=== PATIENT | male | born 1960 | race Caucasian/White ===

== ENCOUNTER → 2016-08-07 | Outpatient (CLI) | payer OTHER ==
[~2016-08-07] MED LIST: CHOL100010 PO
== END | disposition home or self-care (01) ==
LOC: C.LAB 18:54
DX: Z02.83 Encounter for blood-alcohol and blood-drug test (principal)

== ENCOUNTER 2016-08-15 17:14 | Emergency (ER) | payer BC, OTHER ==
[~2016-08-15] VITALS: Ht 172.7 cm; Wt 85.9 kg
[2016-08-15 17:16] VITALS: TEMP 36.8; Ht 172.7 cm; Wt 85.9 kg
[2016-08-15] MEDS ORDERED: METOPROLOL TARTRATE 1 MG/ML VIAL ONE (18:01)
--- NOTE | 2016-08-15 18:11 | DIAGNOSTIC IMAGING REPORT ---
RIGHT HAND 3 VIEWS CLINICAL HISTORY: Finger injury. FINDINGS: 3 views of the right hand are obtained. No prior studies are available for comparison at the time of dictation. The skeletal structures are well mineralized. There is posterior dislocation of the fifth finger at the proximal interphalangeal joint with overlying soft tissue edema. No definite fracture is seen. Mild arthritic change is present involving the interphalangeal joints, greatest in the fifth distal interphalangeal joint. Mild arthritic change is also present at the first carpometacarpal and metacarpophalangeal joints. There are small metallic foreign bodies identified, located superficial to the radial styloid and along the ulnar aspect of the first proximal phalanx. IMPRESSION: 1. There is posterior dislocation at the fifth proximal interphalangeal joint with overlying soft tissue edema. 2. No definite fracture is seen. 3. There are 2 small metallic foreign bodies identified as above. 4. Mild arthritic change as above. Electronically signed by: Mir Parisi M.D. 08/15/2016 5:56 PM Dictated Date/Time: 08/15/2016 5:52 PM
--- NOTE | 2016-08-15 18:55 | DIAGNOSTIC IMAGING REPORT ---
RIGHT HAND 3 VIEWS CLINICAL HISTORY: Finger injury. Postreduction examination. FINDINGS: 3 views of the right hand are compared to study performed earlier the same day 08/15/2016. The skeletal structures are well mineralized. There has been judaism of near-anatomic alignment at the fifth proximal interphalangeal joint as compared to the earlier study. Mild overlying soft tissue edema persists. No fracture is identified. Mild arthritic change is present involving the interphalangeal joints, greatest in the fifth distal interphalangeal joint. Mild arthritic change is also present at the first carpometacarpal and metacarpophalangeal joints. There is unchanged appearance of 2 small metallic foreign bodies which are located superficial to the radial styloid and along the ulnar aspect of the first proximal phalanx. IMPRESSION: 1. There has been successful reduction of the dislocated fifth proximal interphalangeal joint as compared to the earlier study. 2. No fracture is seen. 3. Small metallic foreign bodies are again noted. Electronically signed by: Mir Parisi M.D. 08/15/2016 6:54 PM Dictated Date/Time: 08/15/2016 6:52 PM
[2016-08-15 18:57] VITALS: BP 128/83; PULSE 62; O2SAT 97
--- NOTE | 2016-08-15 21:56 | EMERGENCY ROOM VISIT NOTE ---
ED Visit Note First contact with patient: 17:31 Chief Complaint: Right little finger pain. History of Present Illness: Mr. Brasher is a 56-year-old white male who ambulates into the ED accompanied by his complaining of right little finger pain. Patient reports approximately an hour before he arrived in the emergency department stating a log with his son. He reports his little finger was caught on a branch and his son continue to push the log in his direction. He felt a popping sensation in the pain over the PIP joint of the little finger. Since that time his pain has been constant. Currently he describes it as a throbbing and burning sensation. He rates his discomfort 6/10. The pain is nonradiating. Pain worsens with palpation and any attempts to move the PIP joint. He has not identified any alleviating factors related to the pain. He has not taken any medication for pain prior to arrival at the hospital. He denies any associated symptoms including forearm pain, wrist pain, hand pain, other finger pain, right little finger weakness/ numbness/tingling. Additionally he denies any previous significant injuries or surgeries to finger. Review of Systems: As noted above in history of present illness. 5 body systems were reviewed and found to be negative as noted above. Past Medical History: Pneumonia. Current Medications: Patient denies. Allergies to Medications: Patient denies. Social History: Patient is currently employed; he feels safe in his home environment; he denies tobacco and alcohol use. Physical Examination: Vital Signs: Date Time Temp Pulse Resp B/P Pulse Ox O2 Delivery O2 Flow Rate FiO2 08/15/16 18:57 62 14 128/83 97 08/15/16 17:16 36.8 66 16 137/93 96 Room Air GENERAL: 56-year-old male in mild distress due to pain, nontoxic-appearing, afebrile and hemodynamically stable. NEUROLOGICAL: Awake, alert and oriented to person, place and time. Answering questions appropriately and following commands. SKIN: Warm, dry and pink. No soft tissue trauma noted. RIGHT HAND: Obvious deformity of the fifth PIP joint. No other hand or finger pain/tenderness. No bony deformity or crepitus throughout the little finger. Skin was warm and pink and capillary refill is brisk. He was able to distinguish light sensations through all dermatomes. ED Course: Patient is assessed as noted above. Patient was offered pain medication and refused. Right Hand X-Rays: Were read by myself and the radiologist showing a posterior dislocation of the fifth PIP joint with soft tissue edema. No other fractures were identified. Radiologist did note 2 small metallic foreign bodies in the hand and mild arthritic changes. Ethyl chloride was used to partially anesthetize the right fifth PIP joint. The PIP joint was easily reduced without difficulty. Right Hand X-Rays: Were read by myself and the radiologist and shows resolution of the posterior dislocation of the fifth PIP joint and no additional fractures were noted. Patient's little finger was placed in a metal splint. 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 Patient was educated about tonight's findings and instructed on his treatment plan; he verbalizes understanding and agreement with this plan. Clinical Impression: Right fifth PIP joint dislocation. Disposition: Patient discharged home in stable condition accompanied by his ; prior to departure he was reassessed and subjectively reported he was feeling better and rated his discomfort 2/10. Plan: Comfort measures were discussed with the patient. Patient was encouraged to follow-up with orthopedics if no better in 5-6 days. Patient was encouraged return the ED for uncontrolled pain, uncontrolled swelling, any additional dislocations or any new/concerning symptoms.
== END 2016-08-15 18:59 | disposition home or self-care (01) ==
LOC: C.EDB 17:15 → C.EDD 18:59
DX: S63.256A Unspecified dislocation of right little finger, initial encounter (principal); X58.XXXA Exposure to other specified factors, initial encounter

== ENCOUNTER 2021-04-21 11:44 | Inpatient (IN) ==
[2021-04-21] MEDS ORDERED: DEXAMETHASONE SOD INJ 4 MG/ML VIAL IV STA (12:09)
[2021-04-21] MEDS ORDERED: DEXAMETHASONE SOD INJ 4 MG/ML VIAL ONE (12:10)
[2021-04-21] MEDS ORDERED: ALBUT/IPRATROP 3MG/0.5MG NEB 3 ML VIAL NEB STA (12:13)
--- NOTE | 2021-04-21 12:13 | Emergency Department Note ---
History of Present Illness General Chief Complaint: Illness Stated Complaint: WEAK,COUGHING,HASN'T BEEN EATING OR DRINKING Time Seen by Provider: 04/21/21 12:01 History of Present Illness Provider Complaint: shortness of breath and cough Onset (ago): week(s) (2) Severity: severe Consistency/Duration: + progressively worsening Maximum Pain Intensity: 0 Current Pain Intensity: 0 Relieved By: + oxygen Exacerbated By: + exertion and + coughing Known history of: asthma Associated symptoms: + fever, + cough, + wheezing and + sputum production; no orthopnea, no polyuria, no palpitations, no diaphoresis, no syncope, no abdominal pain, no rash, no chest congestion or no lightheadedness HPI Narrative: Patient not vaccinated against COVID-19. Related Data Home oxygen amount: none Home Medications Medication Instructions Recorded Confirmed Type albuterol sulfate 90 mcg/actuation 1 puff INHALATION Q6H PRN 06/27/18 02/04/21 H istory aerosol inhaler azelastine 137 mcg (0.1 %) nasal 2 spray INTNAS BID #30 ml 01/28/20 02/04/21 Rx spray aerosol fluticasone furoate 200 1 inh INHALATION QAM #180 ea 03/23/21 Rx mcg-vilanterol 25 mcg/dose inhalation powder (Breo Ellipta) Allergies Allergy/AdvReac Type Severity Reaction Status Date / Time No Known Allergies Allergy Verified 02/04/21 15:51 Past Med/Surg History Medical History Asthma Hyperlipidemia Kidney stones Surgical History History of endoscopic sinus surgery Family History Father Cardiac disorder Diabetes Hypertension Mother Breast cancer Unknown Breast cancer Diabetes Ruptured Rao aneurysm Social History Smoking Status: Unknown if ever smoked Second Hand Exposure: No; Hx Alcohol Use: No Hx Substance Use: No Preferred Language: Rw[place] Communication Ability: Effective Human Resources Executive Required: No Beliefs That Will Affect Care: None Current Living Situation: Spouse Feels Safe at Home: Yes Review of Systems A total of 10 systems reviewed and were otherwise negative Physical Exam Vital Signs: Vital Signs - 24 hr 04/21/21 11:47 04/21/21 12:00 04/21/21 12:17 Temperature 36.9 C Temperature Source Temporal Artery Sc an Pulse Rate 97 H Pulse Rate [Apical ] 80 Respiratory Rate 18 19 Respiratory Effort / Characteristics Non-Labored Non-Labored Sponta neous Respiratory Depth Normal Blood Pressure 129/66 Blood Pressure [Le ft Arm] 129/88 Blood Pressure Paz n 87 Blood Pressure Paz n [Left Arm] 101 Blood Pressure Pos ition [Left Arm] Pulse Oximetry 85 L 93 96 Oxygen Delivery Me thod Room Air Nasal Cannula Nasal Cannula Oxygen Flow Rate 4 3 Sepsis Recent Feve r Within 48 Hours No Sepsis New/Unexpla ined Change in Men belem Status No Sepsis Action Take n by Nursing No Action Required 04/21/21 12:25 04/21/21 12:30 04/21/21 12:41 Temperature Temperature Source Pulse Rate Pulse Rate [Apical ] 84 61 Respiratory Rate 18 20 Respiratory Effort / Characteristics Non-Labored Sponta neous Respiratory Depth Blood Pressure Blood Pressure [Le ft Arm] 119/91 Blood Pressure Paz n Blood Pressure Paz n [Left Arm] 100 Blood Pressure Pos ition [Left Arm] Pulse Oximetry 93 93 94 Oxygen Delivery Me thod Nasal Cannula Nasal Cannula Nasal Cannula Oxygen Flow Rate 4 3 4 Sepsis Recent Feve r Within 48 Hours Sepsis New/Unexpla ined Change in Men belem Status Sepsis Action Take n by Nursing 04/21/21 14:00 04/21/21 14:22 04/21/21 15:00 Temperature Temperature Source Pulse Rate Pulse Rate [Apical ] 81 94 H Respiratory Rate 14 18 18 Respiratory Effort / Characteristics Non-Labored Sponta neous Respiratory Depth Blood Pressure Blood Pressure [Le ft Arm] 122/83 120/89 Blood Pressure Paz n Blood Pressure Paz n [Left Arm] 96 99 Blood Pressure Pos ition [Left Arm] Semi-fowlers Pulse Oximetry 96 96 95 Oxygen Delivery Me thod Nasal Cannula Nasal Cannula Nasal Cannula Oxygen Flow Rate 3 3 4 Sepsis Recent Feve r Within 48 Hours Sepsis New/Unexpla ined Change in Men belem Status Sepsis Action Take n by Nursing Physical Exam: Physical Exam GENERAL: He is oriented to person, place, and time. He appears well-developed and well-nourished. He does not appear distressed. HENT: Exam performed. - Head: Normocephalic and atraumatic. - Right Ear: External ear normal. No mastoid tenderness. - Left Ear: External ear normal. No mastoid tenderness. - Mouth/Throat: The oropharynx is clear and moist. No trismus in the jaw. No dental abscesses or uvula swelling. No oropharyngeal exudate or tonsillar absces ses. EYES: Conjunctivae and EOM are normal. Pupils are equal, round, and reactive to light. Right eye exhibits no discharge. Left eye exhibits no discharge. No scleral icterus. NECK: Normal range of motion. Neck supple. No JVD present. No spinous process tenderness present. No carotid bruit present. No rigidity. No tracheal deviation and normal range of motion present. No Brudzinski's sign and no Kernig's sign noted. CV: Normal rate, regular rhythm, normal heart sounds and intact distal pulses. There is no peripheral edema. Palpable radial pulses bue. PULM/CHEST: Diminished breath sounds bilaterally. ABD: The abdomen is soft. Bowel sounds are normal. He has no distension. No mass is present. There is no tenderness. There is no rebound, no guarding, no Duong's sign and no tenderness at McBurney's point. Rovsig negative. MUSC/SKEL: Normal range of motion. There is no peripheral edema, tenderness or deformity. LYMPH: No cervical adenopathy. NEURO: He is alert and oriented to person, place, and time. He has normal strength. No cranial nerve deficit or sensory deficit. Coordination and gait normal. GCS eye subscore is 4. GCS verbal subscore is 5. GCS motor subscore is 6. Cerebellar tests wnl. SKIN: Skin is warm and dry. He is not diaphoretic. PSYCH: He has a normal mood and affect. Behavior is normal. Judgment and thought content normal. Course Course 1201: The patient was evaluated in room A11. A complete history and physical exam was performed Cardiac monitoring: An order was placed for continuous cardiac monitoring. The monitor shows a rate of 90 with sinus rhythm Patient found to be hypoxic on room air at 80%. Patient placed on supplemental oxygen via nasal cannula which proved his oxygen saturation. Decadron 6 mg ordered for the patient as patient most likely is COVID-19 given his unvacc inated status and his symptoms. DuoNeb also ordered for the patient. 1445: Vital signs stable on supplemental oxygen via nasal cannula. Labs are within normal limits. Imaging does showed no PE and does show multifocal pneumonia with Covid. There is also pneumomediastinum. It is thought that the pneumomediastinum is most likely due to the patient coughing excessively. Discussed the case with Sumanth LAZARO for Dr. Millan mount any hospitalist who agrees to admit the patient to their service. Administered Medications Discontinued Medications Albuterol (Albut/Ipratrop 3mg/0.5mg Neb 3 Ml Vial) 3 ml NEB NOW STA Stop: 04/21/21 12:14 Last Admin: 04/21/21 12:41 Dose: 3 ml Documented by: [id number] Dexamethasone (Dexamethasone Sod Inj 4 Mg/Ml Vial) Confirm Administered Dose 4 mg .ROUTE .STK-MED ONE Stop: 04/21/21 12:11 Last Admin: 04/21/21 12:13 Dose: Not Given Documented by: [id number] Dexamethasone (Dexamethasone Sod Inj 4 Mg/Ml Vial) 6 mg IV NOW STA Stop: 04/21/21 12:10 Last Admin: 04/21/21 12:13 Dose: 6 mg Documented by: [id number] Ioversol (Optiray 320 125ml) 121 ml IV ONCE ONE Stop: 04/21/21 13:51 Last Admin: 04/21/21 13:50 Dose: 121 ml Documented by: [id number] Medical Decision Making Laboratory Data Result diagrams: 04/21/21 12:15 04/21/21 12:15 Lab Results 04/21/21 04/21/21 04/21/21 Range/Units 12:15 12:15 12:15 WBC 6.53 (4.8-10.8) K/uL RBC 5.49 (4.7-6.1) M/uL Hgb 15.6 (14.0-18.0) g/dL Hct 45.5 (42-52) % MCV 82.9 (80-100) fL MCH 28.4 (25-34) pg MCHC 34.3 (32-36) g/dL RDW Std Deviation 40.7 (36.4-46.3) fL RDW Coeff of Jade 13.4 (11.5-14.5) % Plt Count 306 (130-400) K/uL MPV 10.0 (7.4-10.4) fL Immature Gran % (Auto) 0.5 % Neut % (Auto) 81.9 % Lymph % (Auto) 11.3 % Coffey % (Auto) 5.8 % Eos % (Auto) 0.3 % Baso % (Auto) 0.2 % Neut # (Auto) 5.35 (1.4-6.5) K/uL Lymph # (Auto) 0.74 L (1.2-3.4) K/uL Coffey # (Auto) 0.38 (0.11-0.59) K/uL Eos # (Auto) 0.02 (0-0.5) K/uL Baso # (Auto) 0.01 (0-0.2) K/uL Immature Gran # (Auto) 0.03 H (0.00-0.02) K/uL PT 10.7 (9.0-12.0) Seconds INR 1.1 (0.9-1.1) APTT 24.0 (21.0-31.0) Seconds PTT Ratio 0.9 VBG pH (7.36-7.41) VBG pCO2 (38-50) mmHg VBG pO2 mmHg VBG HCO3 mmol/L VBG O2 Saturation % VBG Base Excess mEq/L Barometric Pressure mm/Hg Sodium 139 (136-145) mmol/L Potassium 4.1 (3.5-5.1) mmol/L Chloride 105 (98-107) mmol/L Carbon Dioxide 26 (21-32) mmol/L Anion Gap 8.0 (3-11) BUN 21 H (7-18) mg/dl Creatinine 1.05 (0.6-1.4) mg/dl Est Cr Clr Drug Dosing 72.4 ml/min Est GFR ( Amer) 89.0 ml/min Est GFR (Non-Af Amer) 76.8 ml/min BUN/Creatinine Ratio 20.2 H (10-20) Glucose 144 H (70-99) mg/dl Lactate (0.4-2.0) mmol/L Calcium 8.8 (8.5-10.1) mg/dl Magnesium 2.7 H (1.8-2.4) mg/dl Total Bilirubin 1.4 H (0.2-1) mg/dl AST 219 H (15-37) U/L ALT 349 H (12-78) U/L Alkaline Phosphatase 269 H (45-117) U/L Troponin I < 0.015 (0-0.045) ng/ml NT-Pro-B Natriuret Pep 79 (0-900) pg/ml Total Protein 8.0 (6.4-8.2) gm/dl Albumin 2.6 L (3.4-5.0) gm/dl Globulin 5.4 H (2.5-4.0) gm/dl Albumin/Globulin Ratio 0.5 L (0.9-2) Procalcitonin (0-0.5) ng/ml COVID-19 Eval Order SARS-CoV-2 (PCR) (Negative) 04/21/21 04/21/21 04/21/21 Range/Units 12:15 12:15 12:33 WBC (4.8-10.8) K/uL RBC (4.7-6.1) M/uL Hgb (14.0-18.0) g/dL Hct (42-52) % MCV (80-100) fL MCH (25-34) pg MCHC (32-36) g/dL RDW Std Deviation (36.4-46.3) fL RDW Coeff of Jade (11.5-14.5) % Plt Count (130-400) K/uL MPV (7.4-10.4) fL Immature Gran % (Auto) % Neut % (Auto) % Lymph % (Auto) % Coffey % (Auto) % Eos % (Auto) % Baso % (Auto) % Neut # (Auto) (1.4-6.5) K/uL Lymph # (Auto) (1.2-3.4) K/uL Coffey # (Auto) (0.11-0.59) K/uL Eos # (Auto) (0-0.5) K/uL Baso # (Auto) (0-0.2) K/uL Immature Gran # (Auto) (0.00-0.02) K/uL PT (9.0-12.0) Seconds INR (0.9-1.1) APTT (21.0-31.0) Seconds PTT Ratio VBG pH (7.36-7.41) VBG pCO2 (38-50) mmHg VBG pO2 mmHg VBG HCO3 mmol/L VBG O2 Saturation % VBG Base Excess mEq/L Barometric Pressure mm/Hg Sodium (136-145) mmol/L Potassium (3.5-5.1) mmol/L Chloride (98-107) mmol/L Carbon Dioxide (21-32) mmol/L Anion Gap (3-11) BUN (7-18) mg/dl Creatinine (0.6-1.4) mg/dl Est Cr Clr Drug Dosing ml/min Est GFR ( Amer) ml/min Est GFR (Non-Af Amer) ml/min BUN/Creatinine Ratio (10-20) Glucose (70-99) mg/dl Lactate (0.4-2.0) mmol/L Calcium (8.5-10.1) mg/dl Magnesium (1.8-2.4) mg/dl Total Bilirubin (0.2-1) mg/dl AST (15-37) U/L ALT (12-78) U/L Alkaline Phosphatase (45-117) U/L Troponin I (0-0.045) ng/ml NT-Pro-B Natriuret Pep (0-900) pg/ml Total Protein (6.4-8.2) gm/dl Albumin (3.4-5.0) gm/dl Globulin (2.5-4.0) gm/dl Albumin/Globulin Ratio (0.9-2) Procalcitonin 0.40 (0-0.5) ng/ml COVID-19 Eval Order Covid19 at [facility] SARS-CoV-2 (PCR) POSITIVE A* (Negative) 04/21/21 04/21/21 Range/Units 12:44 12:44 WBC (4.8-10.8) K/uL RBC (4.7-6.1) M/uL Hgb (14.0-18.0) g/dL Hct (42-52) % MCV (80-100) fL MCH (25-34) pg MCHC (32-36) g/dL RDW Std Deviation (36.4-46.3) fL RDW Coeff of Jade (11.5-14.5) % Plt Count (130-400) K/uL MPV (7.4-10.4) fL Immature Gran % (Auto) % Neut % (Auto) % Lymph % (Auto) % Coffey % (Auto) % Eos % (Auto) % Baso % (Auto) % Neut # (Auto) (1.4-6.5) K/uL Lymph # (Auto) (1.2-3.4) K/uL Coffey # (Auto) (0.11-0.59) K/uL Eos # (Auto) (0-0.5) K/uL Baso # (Auto) (0-0.2) K/uL Immature Gran # (Auto) (0.00-0.02) K/uL PT (9.0-12.0) Seconds INR (0.9-1.1) APTT (21.0-31.0) Seconds PTT Ratio VBG pH 7.45 H (7.36-7.41) VBG pCO2 42 (38-50) mmHg VBG pO2 18 mmHg VBG HCO3 28 mmol/L VBG O2 Saturation < 60.0 % VBG Base Excess 3.9 mEq/L Barometric Pressure 735.3 mm/Hg Sodium (136-145) mmol/L Potassium (3.5-5.1) mmol/L Chloride (98-107) mmol/L Carbon Dioxide (21-32) mmol/L Anion Gap (3-11) BUN (7-18) mg/dl Creatinine (0.6-1.4) mg/dl Est Cr Clr Drug Dosing ml/min Est GFR ( Amer) ml/min Est GFR (Non-Af Amer) ml/min BUN/Creatinine Ratio (10-20) Glucose (70-99) mg/dl Lactate 1.9 (0.4-2.0) mmol/L Calcium (8.5-10.1) mg/dl Magnesium (1.8-2.4) mg/dl Total Bilirubin (0.2-1) mg/dl AST (15-37) U/L ALT (12-78) U/L Alkaline Phosphatase (45-117) U/L Troponin I (0-0.045) ng/ml NT-Pro-B Natriuret Pep (0-900) pg/ml Total Protein (6.4-8.2) gm/dl Albumin (3.4-5.0) gm/dl Globulin (2.5-4.0) gm/dl Albumin/Globulin Ratio (0.9-2) Procalcitonin (0-0.5) ng/ml COVID-19 Eval Order SARS-CoV-2 (PCR) (Negative) Imaging Data Radiologist's Impression: Chest X-Ray 04/21/21 12:10 SINGLE VIEW CHEST CLINICAL HISTORY: Sepsis. FINDINGS: An AP, portable, upright chest radiograph is compared to study dated 05/02/2018. The cardiomediastinal silhouette is unremarkable. Heart is top normal for projection. Multifocal airspace consolidation is seen throughout both lungs, greatest in a subpleural and lower lobe distribution. No large pleural effusion or pneumothorax is seen. The bony thorax is grossly intact. IMPRESSION: Multifocal airspace consolidation is typical for pneumonia. Clinical correlation will be required and radiographic follow-up to resolution is recommended. ACT 112: Negative or not required by law. Electronically signed by: Mir Parisi M.D. 04/21/2021 1:37 PM Chest CTA 04/21/21 12:11 CT angio chest PE protocol CLINICAL HISTORY: Cough, fever, shortness of breath TECHNIQUE: Multidetector row helical CT of the chest was performed. Coronal and sagittal reformations were obtained. Automated dose lowering techniques and/or adjustment according to patient size were utilized for this exam. Comparison: Comparison is made to chest one view 04/21/2021 FINDINGS: Lungs and pleura: Multifocal groundglass and consolidative opacities are seen predominantly in the peripheral lungs. Bronchial wall thickening is seen. Heart and pericardium: There is cardiomegaly without evidence of pericardial effusion. Vessels: No evidence of pulmonary embolism. Ascending aortic aneurysm is seen measuring measuring 48 mm in diameter. Pulmonary trunk measures 33 mm in diameter. Mediastinum and shan: Pneumomediastinum is seen. Chest wall and lower neck: Unremarkable. Abdomen: A hiatal hernia is seen. Bones: Unremarkable. IMPRESSION: 1. No evidence of pulmonary embolism. 2. Diffuse groundglass and consolidation is seen compatible with infectious/i nflammatory process. 3. Pulmonary trunk is dilated compatible with pulmonary hypertension. 4. Ascending aortic aneurysm measuring 48 mm in diameter. 5. Pneumomediastinum is seen. Clinical correlation is recommended. ACT 112: Negative or not required by law. Electronically signed by: Greg Estrada M.D. 04/21/2021 2:02 PM ECG Data Interpretation: Sinus rhythm with rate of 78. IA QRS and QTc intervals within normal limits. No ST elevation or ST depression. [facility] Narrative 1201: The patient was evaluated in room A11. A complete history and physical exam was performed Cardiac monitoring: An order was placed for continuous cardiac monitoring. The monitor shows a rate of 90 with sinus rhythm Patient found to be hypoxic on room air at 80%. Patient placed on supplemental oxygen via nasal cannula which proved his oxygen saturation. Decadron 6 mg orde red for the patient as patient most likely is COVID-19 given his unvaccinated status and his symptoms. DuoNeb also ordered for the patient. 1445: Vital signs stable on supplemental oxygen via nasal cannula. Labs are within normal limits. Imaging does showed no PE and does show multifocal pneumonia with Covid. There is also pneumomediastinum. It is thought that the pneumomediastinum is most likely due to the patient coughing excessively. Discussed the case with Sumanth LAZARO for Dr. Millan [facility] hospitalist who agrees to admit the patient to their service. Impression & Plan Hypoxia, Pneumonia due to 2019 novel coronavirus, Pneumomediastinum Critical Care Time Critical Care Time: Yes Total Critical Care Time: 38 I have personally spent greater than 38 minutes of critical care time in the direct management of this patient. This includes bedside care, interpretation of diagnostic studies, and testing, discussion with consultants, patient, and family members, and other required patient management activities. This 38 minutes is in excess of all separately billable procedures. Discharge Plan Visit Data Chief Complaint: Illness Stated Complaint: WEAK,COUGHING,HASN'T BEEN EATING OR DRINKING ED Provider: Eduardo Lozada Discharge Problem: Hypoxia, Pneumonia due to 2019 novel coronavirus, Pneumomediastinum Patient Disposition: Admitted As Inpatient Forms Stand Alone Forms: My [facility] Prescriptions Prescriptions: No Action azelastine 137 mcg (0.1 %) aerosol,spray 2 spray INTNAS BID Qty: 30 RF: 5 Breo Ellipta 200-25 mcg/dose blister with device 1 inh INHALATION QAM Qty: 180 RF: 3 albuterol sulfate 90 mcg/actuation Hfa Aerosol Inhaler 1 puff INHALATION Q6H PRN (Reason: SOB) RF: 0 Referrals Referrals: Elena Venegas CRNP [Primary Care Provider] -
[2021-04-21 12:28] LABS: Basophils # (auto) 0.01 K/uL (0-0.2); Basophils % (auto) 0.2 %; Eosinophils # (auto) 0.02 K/uL (0-0.5); Eosinophils % (auto) 0.3 %; Hematocrit (blood only) 45.5 % (42-52); Hemoglobin 15.6 g/dL (14.0-18.0); Immature Granulocytes # (auto) 0.03 K/uL (0.00-0.02); Immature Granulocytes % (auto) 0.5 %; Lymphocytes # (auto) 0.74 K/uL (1.2-3.4); Lymphocytes % (auto) 11.3 %; Mean Corpuscular Hemoglobin 28.4 pg (25-34); Mean Corpuscular Hgb Conc 34.3 g/dL (32-36); Mean Corpuscular Volume 82.9 fL (80-100); Monocytes # (auto) 0.38 K/uL (0.11-0.59); Monocytes % (auto) 5.8 %; Neutrophils # (auto) 5.35 K/uL (1.4-6.5); Neutrophils % (auto) 81.9 %; Platelet Count 306 K/uL (130-400); RDW Coefficient of Variation 13.4 % (11.5-14.5); RDW Standard Deviation 40.7 fL (36.4-46.3); Red Blood Count 5.49 M/uL (4.7-6.1); White Blood Count 6.53 K/uL (4.8-10.8)
--- NOTE | 2021-04-21 12:30 | Electrocardiogram Report ---
Test Reason : Blood Pressure : / mmHG Vent. Rate : 078 BPM Atrial Rate : 078 BPM P-R Int : 150 ms QRS Dur : 094 ms QT Int : 400 ms P-R-T Axes : 068 026 023 degrees QTc Int : 456 ms Normal sinus rhythm Normal ECG No previous ECGs available Confirmed by Walter Lopez ([id number]) on 04/21/2021 12:29:28 PM Referred By: REFERRED SELF Confirmed By:Walter Lopez
[2021-04-21 12:42] LABS: INR 1.1 (0.9-1.1); Partial Thromboplastin Ratio 0.9; Prothrombin Time 10.7 Seconds (9.0-12.0)
[2021-04-21 12:52] LABS: Albumin Level 2.6 gm/dl (3.4-5.0); BUN Creatinine Ratio 20.2 (10-20); Blood Urea Nitrogen 21 mg/dl (7-18); Calcium 8.8 mg/dl (8.5-10.1); Carbon Dioxide 26 mmol/L (21-32); Chloride 105 mmol/L (98-107); Creatinine Clr Calc Pharmacy 72.4 ml/min; Est GFR (Non-African American) 76.8 ml/min; Glucose 144 mg/dl (70-99); Magnesium 2.7 mg/dl (1.8-2.4); Potassium 4.1 mmol/L (3.5-5.1); Sodium 139 mmol/L (136-145)
[2021-04-21 12:57] LABS: Alanine Aminotransferase 349 U/L (12-78); Albumin Globulin Ratio 0.5 (0.9-2); Alkaline Phosphatase 269 U/L (45-117); Aspartate Aminotransferase 219 U/L (15-37); Bilirubin,Total 1.4 mg/dl (0.2-1); Globulin 5.4 gm/dl (2.5-4.0); NT Pro B Type Natriuretic Pept 79 pg/ml (0-900); Troponin I < 0.015 ng/ml (0-0.045)
[2021-04-21 13:02] LABS: Base Excess VBG 3.9 mEq/L; HCO3 VBG 28 mmol/L; PCO2 VBG 42 mmHg (38-50); PO2 VBG 18 mmHg; pH VBG 7.45 (7.36-7.41)
[2021-04-21 13:07] LABS: Oxygen Saturation VBG < 60.0 %
--- NOTE | 2021-04-21 13:38 | XRay Report ---
SINGLE VIEW CHEST CLINICAL HISTORY: Sepsis. FINDINGS: An AP, portable, upright chest radiograph is compared to study dated 05/02/2018. The cardio mediastinal silhouette is unremarkable. Heart is top normal for projection. Multifocal airspace conso lidation is seen throughout both lungs, greatest in a subpleural and lower lobe distribution. No larg e pleural effusion or pneumothorax is seen. The bony thorax is grossly intact. IMPRESSION: Multifocal airspace consolidation is typical for pneumonia. Clinical correlation will be required and radiographic follow-up to resolution is recommended. ACT 112: Negative or not required by law. Electronically signed by: Mir Parisi M.D. 04/21/2021 1:37 PM
[2021-04-21] MEDS ORDERED: OPTIRAY 320 125ml IV ONE (13:50)
--- NOTE | 2021-04-21 14:04 | CT Scan Report ---
CT angio chest PE protocol CLINICAL HISTORY: Cough, fever, shortness of breath TECHNIQUE: Multidetector row helical CT of the chest was performed. Coronal and sagittal reformations were obtained. Automated dose lowering techniques and/or adjustment according to patient size were u tilized for this exam. Comparison: Comparison is made to chest one view 04/21/2021 FINDINGS: Lungs and pleura: Multifocal groundglass and consolidative opacities are seen predominantly in the pe ripheral lungs. Bronchial wall thickening is seen. Heart and pericardium: There is cardiomegaly without evidence of pericardial effusion. Vessels: No evidence of pulmonary embolism. Ascending aortic aneurysm is seen measuring measuring 48 mm in diameter. Pulmonary trunk measures 33 mm in diameter. Mediastinum and shan: Pneumomediastinum is seen. Chest wall and lower neck: Unremarkable. Abdomen: A hiatal hernia is seen. Bones: Unremarkable. IMPRESSION: 1. No evidence of pulmonary embolism. 2. Diffuse groundglass and consolidation is seen compatible with infectious/inflammatory process. 3. Pulmonary trunk is dilated compatible with pulmonary hypertension. 4. Ascending aortic aneurysm measuring 48 mm in diameter. 5. Pneumomediastinum is seen. Clinical correlation is recommended. ACT 112: Negative or not required by law. Electronically signed by: Greg Estrada M.D. 04/21/2021 2:02 PM
[2021-04-21] MEDS ORDERED: LACTATED RINGER'S 1,000 ML IV ONE (15:18)
--- NOTE | 2021-04-21 15:23 | History & Physical Report ---
Date of Service April 21, 2021 Assessment & Plan (1) Pneumonia due to 2019 novel coronavirus: Plan: Not vaccinated - approximate day of illness ~14 days - hypoxic on arrival - Continue Decadron 6mg daily IV - Continue MICHELLE, Continue BREO - Not candidate for remdesivir secondary to time out from illness - LDH, CRP, ESR, Ferritin, BNP pending - PCT negative - LR 90ml an hour for one liter- mild increase in BUN/CLINICAL MASSAGE THERAPIST likely secondary to decrease oral intake (2) Pneumomediastinum: Plan: Likely secondary to coughing, no pneumothorax seen on CXR or CT scan of the chest - likely to resolve on own - continue basic oxygen support - cough suppressant scheduled for 24 hours and then PRN q6 hrs - re-image if worsening in status (3) Hypoxia: Plan: As above secondary to COVID 19 and underlying asthma - Continue Decadron, MICHELLE, BREO - NC/HFNC (4) Dilated aortic root: Plan: Stable- last imaged in 2019 4.6cm (5) Asthma: Plan: As above (6) Hyperlipidemia: Plan: Declined therapy in the past (7) Elevated LFTs: Plan: Acute phase reactant secondary to COVID likely cause - follow daily - no abdominal discomfort - no abnormality seen on CTA of the chest with liver and gallbladder History of Present Illness Primary Care Provider: IVETH Nation 60 YOM with past medical history of: asthma on Albuterol and Breo at home, dilated ascending aorta 4.6cm in 2019, HLD (declined medial therapy). Patient comes to the emergency room today for continued weakness, fatigue, decreased oral intake for the past week. He is unvaccinated and today is his only COVID test that he has received per the patient. Patient is COVID positive. He is accompanied by his who has also recently been sick and is on the end of feeling better. The patient endorses that he is approximately 2 weeks of sinus congestion, fevers, body aches, diarrhea (now resolving), fatigue, and coughing that is dry and non productive but is associated with some dry heaves and ga gging when it gets severe. The cogh has been getting progressively worse over the past 3-4 days. Normally he would take his albuterol and his BREO and he would feel better. In the EMD the patient had routine labs drawn, CXR, and CTA of the chest performed. Labs reveal mild elevation of his renal function, elevated LFTs and bilirubin. His CTA of his chest was negative for PE and measured his ascending aortic dilation at 4.8cm, and a small pneumomediastinum without pneumothorax. His room air spo2 on arrival was 85% he was placed on 3LNC, Decadron 6mg, and nebulizer his Spo2 95%. Patient will be admitted for continued supportive care, cough suppressant, and monitoring of his pneumomediastinum. Continue Decadron for his COVID and asthma supportive care. Patient is not vaccinated and his COVID test on admission is: POSITIVE Allergies Allergy/AdvReac Type Severity Reaction Status Date / Time No Known Allergies Allergy Verified 04/21/21 15:18 Home Medications Medication Instructions Recorded Confirmed Type fluticasone furoate 200 1 inh INHALATION QAM #180 ea 03/23/21 04/21/21 Rx mcg-vilanterol 25 mcg/dose inhalation powder (Breo Ellipta) Past Med/Surg History Medical History (Updated 04/21/21 @ 15:44 by IVETH Duong) Asthma Hyperlipidemia Kidney stones Surgical History History of endoscopic sinus surgery Family History Father Cardiac disorder Diabetes Hypertension Mother Breast cancer Unknown Breast cancer Diabetes Ruptured Rao aneurysm Social History Smoking Status: Unknown if ever smoked Second Hand Exposure: No; Hx Alcohol Use: No Hx Substance Use: No Preferred Language: Jordanian Communication Ability: Effective Retirement Benefits Specialist Required: No Beliefs That Will Affect Care: None Current Living Situation: Spouse Feels Safe at Home: Yes Review of Systems Review of Systems: REVIEW OF SYSTEMS: Constitutional: No fever, sweats or chills Eyes: No diplopia, no worsening or blurred vision ENT: normal hearing, no trouble swallowing Respiratory: (+) cough, dyspnea at rest and with exertion, NO sputum Cardiovascular: No chest pain, tightness or palpitations Abdomen: (+) diarrhea, No pain, nausea, vomiting, diarrhea Musculoskeletal: (+) joint pain, calf pain, swelling Neurologic: No weakness, numbness/tingling, or balance problems Psychiatric: No anxiety or depression Skin: No rash or itch Physical Exam Physical Exam: PHYSICAL EXAM: General: awake, alert, fatigued appearing, no apparent distress Head: Normocephalic, atraumatic ENT: no icterus, PERRL, EOMI, no pharyngeal exudate, mucous membranes dry Neuro: AAO x 3, speech clear and appropriate, strength intact bilaterally 5/5, sensation intact and equal all extremities and dermatomes, no pronator drift Chest: equal rise and fall of the chest, no accessory muscle use, no heaves or thrills, scattered wheeze, on 2LNC, no subcutaneous emphysema noted on palpation Cardiac: Regular rate and rhythm, telemetry reviewed, skin warm dry, cap refill <3 seconds, peripheral pulses +2 no JVD, no murmur, no edema GI: NABS x 4 quadrants, soft, nontender to palpation, no rebound, guarding or tenderness : Spontaneously voiding, no pain, no CVA tenderness, Extremities: Normal inspection, no peripheral edema or erythema, calfs nontender to palpation Psych: Normal mood and affect Skin: no rash or erythema Results & Data Results & Data ([facility]) Vital Signs (Past 12 Hours) Vital Signs Temp Pulse Pulse Resp BP BP Pulse Ox 04/21/21 15:00 94 H 18 120/89 95 04/21/21 14:22 18 96 04/21/21 14:00 81 14 122/83 96 04/21/21 12:41 61 20 94 04/21/21 12:30 84 18 119/91 93 04/21/21 12:25 93 04/21/21 12:17 80 19 129/88 96 04/21/21 12:00 93 04/21/21 11:47 36.9 C 97 H 18 129/66 85 L Laboratory Results Abnormal lab results 04/21/21 04/21/21 04/21/21 Range/Units 12:15 12:15 12:15 Lymph # (Auto) 0.74 L (1.2-3.4) K/uL Immature Gran # (Auto) 0.03 H (0.00-0.02) K/uL VBG pH (7.36-7.41) BUN 21 H (7-18) mg/dl BUN/Creatinine Ratio 20.2 H (10-20) Glucose 144 H (70-99) mg/dl Magnesium 2.7 H (1.8-2.4) mg/dl Total Bilirubin 1.4 H (0.2-1) mg/dl AST 219 H (15-37) U/L ALT 349 H (12-78) U/L Alkaline Phosphatase 269 H (45-117) U/L Albumin 2.6 L (3.4-5.0) gm/dl Globulin 5.4 H (2.5-4.0) gm/dl Albumin/Globulin Ratio 0.5 L (0.9-2) SARS-CoV-2 (PCR) POSITIVE A* (Negative) 04/21/21 Range/Units 12:44 Lymph # (Auto) (1.2-3.4) K/uL Immature Gran # (Auto) (0.00-0.02) K/uL VBG pH 7.45 H (7.36-7.41) BUN (7-18) mg/dl BUN/Creatinine Ratio (10-20) Glucose (70-99) mg/dl Magnesium (1.8-2.4) mg/dl Total Bilirubin (0.2-1) mg/dl AST (15-37) U/L ALT (12-78) U/L Alkaline Phosphatase (45-117) U/L Albumin (3.4-5.0) gm/dl Globulin (2.5-4.0) gm/dl Albumin/Globulin Ratio (0.9-2) SARS-CoV-2 (PCR) (Negative) Diagnostic Findings Chest X-Ray 04/21/21 12:10 SINGLE VIEW CHEST CLINICAL HISTORY: Sepsis. FINDINGS: An AP, portable, upright chest radiograph is compared to study dated 05/02/2018. The cardiomediastinal silhouette is unremarkable. Heart is top normal for projection. Multifocal airspace consolidation is seen throughout both lungs, greatest in a subpleural and lower lobe distribution. No large pleural effusion or pneumothorax is seen. The bony thorax is grossly intact. IMPRESSION: Multifocal airspace consolidation is typical for pneumonia. Clinical correlation will be required and radiographic follow-up to resolution is recommended. ACT 112: Negative or not required by law. Electronically signed by: Mir Parisi M.D. 04/21/2021 1:37 PM Chest CTA 04/21/21 12:11 CT angio chest PE protocol CLINICAL HISTORY: Cough, fever, shortness of breath TECHNIQUE: Multidetector row helical CT of the chest was performed. Coronal and sagittal reformations were obtained. Automated dose lowering techniques and/or adjustment according to patient size were utilized for this exam. Comparison: Comparison is made to chest one view 04/21/2021 FINDINGS: Lungs and pleura: Multifocal groundglass and consolidative opacities are seen predominantly in the peripheral lungs. Bronchial wall thickening is seen. Heart and pericardium: There is cardiomegaly without evidence of pericardial effusion. Vessels: No evidence of pulmonary embolism. Ascending aortic aneurysm is seen measuring measuring 48 mm in diameter. Pulmonary trunk measures 33 mm in diameter. Mediastinum and shan: Pneumomediastinum is seen. Chest wall and lower neck: Unremarkable. Abdomen: A hiatal hernia is seen. Bones: Unremarkable. IMPRESSION: 1. No evidence of pulmonary embolism. 2. Diffuse ground glass and consolidation is seen compatible with infectious/inflammatory process. 3. Pulmonary trunk is dilated compatible with pulmonary hypertension. 4. Ascending aortic aneurysm measuring 48 mm in diameter. 5. Pneumomediastinum is seen. Clinical correlation is recommended. ACT 112: Negative or not required by law. Electronically signed by: Greg Estrada M.D. 04/21/2021 2:02 PM Medications Administered Home Medications fluticasone furoate 200 mcg-vilanterol 25 mcg/dose inhalation powder (Breo Ellipta) 1 inh INHALATION QAM #180 ea 03/23/21 [Rx] Active Medications Lactated Ringer's (Lr) 1,000 mls @ 90 mls/hr IV .[id number] ONE Stop: 04/22/21 02:24 Medications Albuterol (Albut/Ipratrop 3mg/0.5mg Neb 3 Ml Vial) 3 ml NEB NOW STA Stop: 04/21/21 12:14 Last Admin: 04/21/21 12:41 Dose: 3 ml Documented by: [id number] Dexamethasone (Dexamethasone Sod Inj 4 Mg/Ml Vial) Confirm Administered Dose 4 mg .ROUTE .STK-MED ONE Stop: 04/21/21 12:11 Last Admin: 04/21/21 12:13 Dose: Not Given Documented by: [id number] Dexamethasone (Dexamethasone Sod Inj 4 Mg/Ml Vial) 6 mg IV NOW STA Stop: 11/16/21 12:10 Last Admin: 04/21/21 12:13 Dose: 6 mg Documented by: [id number] Ioversol (Optiray 320 125ml) 121 ml IV ONCE ONE Stop: 04/21/21 13:51 Last Admin: 04/21/21 13:50 Dose: 121 ml Documented by: [id number] ECG Additional Comments: Normal sinus rhythm Normal ECG No previous ECGs available Code Status & VTE Plan Code Status CODE: FULL VTE: SCDs, Lovenox 40mg sub q daily VTE Prophylaxis Plan VTE Prophylaxis will be ordered: Yes Supervising Physician Co-Signing Physician Notes Patient was seen and examined independently I discussed the case with Sumanth LAZARO I reviewed pertinent past medical social family history and also the plan of care and agree with the plan of care. Patient with Covid positivity he has been ill for 14 days counting today he has improved somewhat but profound weakness and ability to get around care for himself he does have hypoxia but is out of the time window for remdesivir. He w ill be put on dexamethasone supportive care PT OT evaluation evaluate him for progression of hypoxia since he is around 2-week [place] Lungs are with bilateral rales consistent with Covid pneumonia Any exceptions will be noted below PG Care Time/CCT Total # of Minutes Spent Total Time Spent with Patient: Total time spent is greater than 50% in coordination of care (as documented) at patient's floor/unit and/or counseling patient: Coding Level of Care Code 35797 Initial Inpt Care Lvl 3 Diagnoses Pneumonia due to 2019 novel coronavirus U07.1; J12.82 Pneumomediastinum J98.2 Hypoxia R09.02 Dilated aortic root I77.810 Asthma J45.909 Hyperlipidemia E78.5 Elevated LFTs R79.89
[2021-04-21 15:51] LABS: Fibrinogen 676 mg/dl (184-400)
[2021-04-21 15:51] LABS: C Reactive Protein 13.8 mg/dl (0-0.29); Ferritin 2583.6 ng/ml (8-388)
[2021-04-21] MEDS ORDERED: ENOXAPARIN INJ 40 MG/0.4 ML SYR SQ SCH (20:00)
[2021-04-21] MEDS: ALBUTEROL HFA 8 GM INHALER INH SCH (21:47)
[2021-04-21] MEDS: guaiFENesin SUGAR FREE 100 MG/5 ML UDC PO SCH (22:47)
[2021-04-22] MEDS: guaiFENesin SUGAR FREE 100 MG/5 ML UDC PO SCH ×4 (00:20→17:20)
[2021-04-22] MEDS: ALBUTEROL HFA 8 GM INHALER INH SCH ×3 (01:12→13:10)
[2021-04-22] MEDS ORDERED: METOPROLOL TARTRATE 1 MG/ML VIAL IV STA (01:55)
[2021-04-22] MEDS ORDERED: Heparin IV Adult Wt-Based Standard WITH Bolus Protocol IV STA (01:59)
[2021-04-22] MEDS ORDERED: HEPARIN SOD (PORCINE) 1000 UNIT/ML IV ONE ×4 (02:50→22:30)
[2021-04-22] MEDS: HEPARIN SODIUM/DEXTROSE 25,000 UNITS/500 ML BAG IV SCH (03:25)
[2021-04-22 03:41] LABS: Hematocrit (blood only) 41.7 % (42-52); Hemoglobin 14.3 g/dL (14.0-18.0); Immature Granulocytes # (auto) 0.02 K/uL (0.00-0.02); Immature Granulocytes % (auto) 0.4 %; Lymphocytes # (auto) 0.69 K/uL (1.2-3.4); Lymphocytes % (auto) 12.4 %; Mean Corpuscular Hemoglobin 28.1 pg (25-34); Mean Corpuscular Volume 82.1 fL (80-100); Mean Platelet Volume 10.1 fL (7.4-10.4); Monocytes # (auto) 0.31 K/uL (0.11-0.59); Monocytes % (auto) 5.6 %; Neutrophils # (auto) 4.53 K/uL (1.4-6.5); Neutrophils % (auto) 81.6 %; Platelet Count 278 K/uL (130-400); RDW Coefficient of Variation 13.5 % (11.5-14.5); RDW Standard Deviation 40.9 fL (36.4-46.3); Red Blood Count 5.08 M/uL (4.7-6.1); White Blood Count 5.55 K/uL (4.8-10.8)
[2021-04-22 03:54] LABS: INR 1.1 (0.9-1.1); Partial Thromboplastin Time 26.6 Seconds (21.0-31.0); Prothrombin Time 10.8 Seconds (9.0-12.0)
[2021-04-22 04:00] LABS: Mean Corpuscular Hgb Conc 34.3 g/dL (32-36)
[2021-04-22 07:30] LABS: Partial Thromboplastin Ratio 1.4; Partial Thromboplastin Time 37.6 Seconds (21.0-31.0)
[2021-04-22] MEDS: FLUTICASONE/VILANTEROL 200/25MCG 14 PUFFS/INHALER INH SCH (08:19)
--- NOTE | 2021-04-22 08:57 | Electrocardiogram Report ---
Test Reason : Blood Pressure : / mmHG Vent. Rate : 111 BPM Atrial Rate : 110 BPM P-R Int : 000 ms QRS Dur : 102 ms QT Int : 350 ms P-R-T Axes : 000 053 020 degrees QTc Int : 476 ms Poor data quality, interpretation may be adversely affected Atrial fibrillation with rapid ventricular response Abnormal ECG When compared with ECG of 21-APR-2021 12:01, Atrial fibrillation has replaced Sinus rhythm HR has increased by 33 bpm Confirmed by Walter Lopez ([id number]) on 04/22/2021 8:57:21 AM Referred By: REFERRED SELF Confirmed By:Walter Lopez
[2021-04-22] MEDS ORDERED: guaiFENesin SUGAR FREE 100 MG/5 ML UDC PO PRN (09:17)
[2021-04-22 14:43] LABS: Partial Thromboplastin Ratio 1.3
[2021-04-22 15:04] LABS: Albumin Level 2.2 gm/dl (3.4-5.0); BUN Creatinine Ratio 26.6 (10-20); Calcium 9.1 mg/dl (8.5-10.1); Creatinine Clr Calc Pharmacy 85.4 ml/min; Est GFR (African American) 107.7 ml/min; Est GFR (Non-African American) 92.9 ml/min; Magnesium 2.7 mg/dl (1.8-2.4)
[2021-04-22 15:11] LABS: Albumin Globulin Ratio 0.4 (0.9-2); Bilirubin,Total 0.8 mg/dl (0.2-1); Globulin 5.4 gm/dl (2.5-4.0); Phosphorus 3.2 mg/dl (2.5-4.9); Total Protein 7.6 gm/dl (6.4-8.2)
[2021-04-22] MEDS ORDERED: HEPARIN IV BOLUS 3,000 UNITS in SYRINGE 0 ML IV ONE (15:15)
[2021-04-22] MEDS ORDERED: ALBUTEROL HFA 8 GM INHALER INH PRN (17:59)
--- NOTE | 2021-04-22 20:36 | Hospitalist Progress Note ---
Date of Service April 22, 2021 Assessment & Plan (1) Pneumonia due to 2019 novel coronavirus: Plan: Not vaccinated - approximate day of illness ~14 days - hypoxic on arrival - Continue Decadron 6mg daily IV - Continue MICHELLE, Continue BREO - Not candidate for remdesivir secondary to time out from illness - LDH, CRP, ESR, Ferritin, BNP pending - PCT negative - LR 90ml an hour for one liter- mild increase in BUN/STEWARD/STEWARDESS SECOND CLASS likely secondary to decrease oral intake will continue dexamethasone. If oxygen requirement remains low, will discharge tomorrow, (2) Pneumomediastinum: Plan: Likely secondary to coughing, no pneumothorax seen on CXR or CT scan of the chest - likely to resolve on own - continue basic oxygen support - cough suppressant scheduled for 24 hours and then PRN q6 hrs - re-image if worsening in status (3) Hypoxia: Plan: As above secondary to COVID 19 and underlying asthma - Continue Decadron, MICHELLE, BREO - NC/HFNC (4) Dilated aortic root: Plan: Stable- last imaged in 2019 4.6cm (5) Asthma: Plan: As above (6) Hyperlipidemia: Plan: Declined therapy in the past (7) Elevated LFTs: Plan: Acute phase reactant secondary to COVID likely cause - follow daily - no abdominal discomfort - no abnormality seen on CTA of the chest with liver and gallbladder Admission and Anticipated Discharge Date Admission Date: April 21, 2021 Subjective Patient reports no new complaints. He is comfortable on 1 Liter nasal cannula. Review of Systems Review of Systems: All systems reviewed & are unremarkable except as noted in HPI & below Physical Exam Physical Exam: General: awake, alert, no apparent distress Head: Normocephalic, atraumatic ENT: no icterus, PERRL, EOMI, no pharyngeal exudate Neuro: AAO x 3, speech clear and appropriate, strength intact bilaterally 5/5, sensation intact and equal all extremities and dermatomes, no pronator drift Chest: equal rise and fall of the chest, no accessory muscle use, on 1LNC, no subcutaneous emphysema noted on palpation Cardiac: Regular rate and rhythm, telemetry reviewed, skin warm dry, cap refill <3 seconds, peripheral pulses +2 no JVD, no murmur, no edema GI: NABS x 4 quadrants, soft, nontender to palpation, no rebound, guarding or tenderness : Spontaneously voiding, no pain, no CVA tenderness, Extremities: Normal inspection, no peripheral edema or erythema, calfs nontender to palpation Psych: Normal mood and affect Skin: no rash or erythema Results & Data Results & Data ([facility]) Vital Signs (Past 12 Hours) Vital Signs Temp Pulse Resp BP Pulse Ox 04/22/21 20:03 36.5 C 99 H 16 136/80 95 04/22/21 15:33 36.4 C L 111 H 18 130/81 95 04/22/21 13:12 118 H 18 96 04/22/21 11:31 36.7 C 78 20 113/85 93 PG Care Time/CCT Total # of Minutes Spent Total Time Spent with Patient: Total time spent is greater than 50% in coordination of care (as documented) at patient's floor/unit and/or counseling patient: Coding Level of Care Code 15765 Subseq Hosp Care Lvl 2 Diagnoses Pneumonia due to 2019 novel coronavirus U07.1; J12.82 Pneumomediastinum J98.2 Hypoxia R09.02 Dilated aortic root I77.810 Asthma J45.909 Hyperlipidemia E78.5 Elevated LFTs R79.89
[2021-04-22 20:42] LABS: Appearance Urine Cloudy (Clear); Bacteria Urine Automated Negative (Negative); Blood Urine Negative (Negative); Color Urine Dark Yellow; Epithelial Cell Urine Auto >30 /lpf (0-5); Glucose Urine UA 2+ (Negative); Ketones Urine Trace (Negative); Leukocyte Esterase Urine Negative (Negative); Nitrite Urine Negative (Negative); Protein Urine 2+ (Negative); RBC Urine Automated 0-4 /hpf (0-4); Urobilinogen Urine Positive (Negative)
[2021-04-22 20:51] LABS: Bilirubin Urine 1+ (Negative)
[2021-04-22 21:24] LABS: Partial Thromboplastin Ratio 1.4; Partial Thromboplastin Time 37.7 Seconds (21.0-31.0)
[2021-04-23] MEDS: guaiFENesin SUGAR FREE 100 MG/5 ML UDC PO SCH ×4 (00:27→17:10)
[2021-04-23] MEDS: HEPARIN SODIUM/DEXTROSE 25,000 UNITS/500 ML BAG IV SCH ×2 (02:46→20:02)
[2021-04-23] MEDS ORDERED: METOPROLOL TARTRATE 1 MG/ML VIAL IV STA ×4 (04:10→14:42)
[2021-04-23 05:25] LABS: Partial Thromboplastin Ratio 1.5; Partial Thromboplastin Time 40.3 Seconds (21.0-31.0)
[2021-04-23 05:46] LABS: Albumin Level 2.1 gm/dl (3.4-5.0); BUN Creatinine Ratio 26.5 (10-20); Calcium 8.8 mg/dl (8.5-10.1); Est GFR (African American) 112.5 ml/min; Est GFR (Non-African American) 97.1 ml/min; Magnesium 2.2 mg/dl (1.8-2.4); Potassium 3.9 mmol/L (3.5-5.1)
[2021-04-23 05:49] LABS: Albumin Globulin Ratio 0.4 (0.9-2); Bilirubin,Total 0.7 mg/dl (0.2-1); Total Protein 7.1 gm/dl (6.4-8.2)
[2021-04-23 06:39] LABS: Basophils # (auto) 0.01 K/uL (0-0.2); Basophils % (auto) 0.1 %; Eosinophils # (auto) 0.06 K/uL (0-0.5); Eosinophils % (auto) 0.5 %; Hematocrit (blood only) 43.6 % (42-52); Hemoglobin 14.9 g/dL (14.0-18.0); Immature Granulocytes # (auto) 0.08 K/uL (0.00-0.02); Immature Granulocytes % (auto) 0.7 %; Lymphocytes # (auto) 0.93 K/uL (1.2-3.4); Lymphocytes % (auto) 8.4 %; Mean Corpuscular Hemoglobin 28.5 pg (25-34); Mean Corpuscular Hgb Conc 34.2 g/dL (32-36); Mean Corpuscular Volume 83.4 fL (80-100); Mean Platelet Volume 11.5 fL (7.4-10.4); Monocytes # (auto) 0.76 K/uL (0.11-0.59); Monocytes % (auto) 6.9 %; Neutrophils # (auto) 9.17 K/uL (1.4-6.5); Neutrophils % (auto) 83.4 %; Platelet Count 358 K/uL (130-400); RDW Coefficient of Variation 13.4 % (11.5-14.5); Red Blood Count 5.23 M/uL (4.7-6.1); White Blood Count 11.01 K/uL (4.8-10.8)
[2021-04-23] MEDS: FLUTICASONE/VILANTEROL 200/25MCG 14 PUFFS/INHALER INH SCH (07:53)
[2021-04-23 13:18] LABS: Partial Thromboplastin Ratio 1.4
[2021-04-23] MEDS ORDERED: HEPARIN SOD (PORCINE) 1000 UNIT/ML IV ONE (13:36)
[2021-04-23] MEDS ORDERED: LEVALBUTEROL HCL 1.25 MG/3 ML NEB NEB PRN (13:38)
[2021-04-23] MEDS ORDERED: STAT IV Infusion **Titration per Protocol STA (17:49)
[2021-04-23] MEDS ORDERED: dilTIAZem HCL 125 MG in DEXTROSE 5% 100 ML IV SCH (18:00)
--- NOTE | 2021-04-23 18:23 | Cardiology Consultation ---
Date of Consultation April 23, 2021 Assessment & Plan (1) Atrial fibrillation with rapid ventricular response: New onset atrial fibrillation, precipitated in adrenergic context of ongoing Covid infection. [id number] score is 0, but the patient is on heparin currently. As an active chen, his bleeding risk would be higher and his thromboembolic risk is currently low, so he would not need chronic anticoagulation for atrial fibrillation. Currently on diltiazem drip, use of this may be limited by his relative hypotension. Would recommend initiating metoprolol orally at 50 mg p.o. every 8 hours (hold orders for heart rate less than 50 bpm or systolic blood pressure less than 90 mmHg). Can supplement with IV metoprolol 5 mg every 2 to 4 hours as needed heart rate greater than 120 bpm. Since the patient is anxious to return home, would keep him n.p.o. overnight and could consider electrical cardioversion tomorrow morning, preferably after he has initiated beta-blockers. (2) Pneumonia due to 2019 novel coronavirus: Per primary team. (3) Aortic root dilatation: Aortic root increased from 4.6 cm in 2019 to 4.8 cm currently. This increase in size is below the threshold of 1 cm/year which would prompt intervention. Absolute size remains below 5.5 cm, so continued active surveillance rather than intervention is warranted. History of Present Illness Reason for Consultation: New onset A. fib. Requesting Physician: Lion Dempsey Attending Physician: Lion Dempsey History of Present Illness 60-year-old man with history of asthma, no other major medical problems, who was admitted 04/21/2021 with Covid pneumonia (symptom onset 2 weeks earlier), initially sinus rhythm but developed new onset atrial fibrillation with rapid ventricular response. He notes dyspnea on exertion but is comfortable at rest. No subjective palpitations or chest pain. 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 Allergies Allergy/AdvReac Type Severity Reaction Status Date / Time No Known Allergies Allergy Verified 04/21/21 15:18 Home Medications Medication Instructions Recorded Confirmed Type fluticasone furoate 200 1 inh INHALATION QAM #180 ea 03/23/21 04/21/21 Rx mcg-vilanterol 25 mcg/dose inhalation powder (Breo Ellipta) Patient History Medical History Asthma Hyperlipidemia Kidney stones Surgical History History of endoscopic sinus surgery Family History Father Cardiac disorder Diabetes Hypertension Mother Breast cancer Unknown Breast cancer Diabetes Ruptured Rao aneurysm Social History Smoking Status: Unknown if ever smoked Second Hand Exposure: No; Hx Alcohol Use: No Hx Substance Use: No Preferred Language: Macedonian Communication Ability: Effective Silk Examiner Required: No Beliefs That Will Affect Care: None Current Living Situation: Spouse Feels Safe at Home: Yes Safety Concerns: Feels Safe At This Time Assistive Devices: Oxygen - Continuous Physical Exam Physical Exam: Fit appearing adult male in no acute distress. Afebrile. Normotensive. Pulse 120 bpm or greater and irregular. Skin: no ecchymoses or generalized lesions. HEENT: unremarkable. Neck: no JVD or carotid bruits. Lungs: Diffuse rhonchi with expiratory wheezing. No accessory muscle use. Cardiac: Irregular/tachycardic rhythm without obvious murmur or gallop. Abdomen: benign. Extremities: no edema, pulses intact. Neurologic: normal affect, nonfocal. Results & Data ([facility]) Vital Signs (Past 12 Hours) Vital Signs Temp Pulse Pulse Resp BP Pulse Ox 04/23/21 15:10 98.1 F 74 18 111/69 92 04/23/21 11:23 98.4 F 84 18 98/51 L 95 04/23/21 07:09 98.2 F 94 H 18 110/76 95 04/23/21 06:18 84 128/60 93 Laboratory Results Initial white count normal, mildly elevated today (received steroids). Normal hemoglobin and platelet count. Normal electrolytes, BUN 21, creatinine 0.8. Elevated transaminases. Negative troponin. Diagnostic Findings ECG on admission showed sinus rhythm at 78 bpm and was completely unremarkable. ECG yesterday unchanged. ECG today showed atrial fibrillation with rapid ventricular response of 111 bpm, rate increased by 33 bpm over prior ECG. Telemetry shows atrial fibrillation with ventricular rate in the 120-140 bpm range. Chest x-ray shows pneumonia. CT of the chest shows no pulmonary embolism but does show diffuse consolidations, evidence of pulmonary hypertension, pneumomediastinum, and a sending aortic aneurysm 4.8 cm diameter. PG Care Time/CCT Total # of Minutes Spent Total Time Spent with Patient: Total time spent is greater than 50% in coordination of care (as documented) at patient's floor/unit and/or counseling patient: Coding Level of Care Code 11599 Inpt Consult Level 4 Diagnoses Atrial fibrillation with rapid ventricular response I48.91 Pneumonia due to 2019 novel coronavirus U07.1; J12.82 Aortic root dilatation I77.810
[2021-04-23] MEDS ORDERED: METOPROLOL TARTRATE 1 MG/ML VIAL IV PRN (19:23)
[2021-04-23 20:33] LABS: Partial Thromboplastin Ratio 1.8
[2021-04-23 20:42] LABS: Partial Thromboplastin Time 48.6 Seconds (21.0-31.0)
[2021-04-23] MEDS ORDERED: METOPROLOL TARTRATE 50 MG TAB PO SCH (21:00)
--- NOTE | 2021-04-23 21:45 | Hospitalist Progress Note ---
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 on 2 liters nasal cannula. Patient is now in A. Fib. required multiple beta ray doses. will place on 50 mg of metoprolol BID and monitor. (2) Pneumomediastinum: Plan: Likely secondary to coughing, no pneumothorax seen on CXR or CT scan of the chest - likely to resolve on own - continue basic oxygen support - cough suppressant scheduled for 24 hours and then PRN q6 hrs - re-image if worsening in status (3) Hypoxia: Plan: As above secondary to COVID 19 and underlying asthma - Continue Decadron, MICHELLE, BREO - NC/HFNC (4) Dilated aortic root: Plan: Stable- last imaged in 2019 4.6cm (5) Asthma: Plan: As above (6) Hyperlipidemia: Plan: Declined therapy in the past (7) Elevated LFTs: Plan: Acute phase reactant secondary to COVID likely cause - follow daily - no abdominal discomfort - no abnormality seen on CTA of the chest with liver and gallbladder Admission and Anticipated Discharge Date Admission Date: April 21, 2021 Subjective Patient reports no new symptoms. Review of Systems Review of Systems: All systems reviewed & are unremarkable except as noted in HPI & below Physical Exam Physical Exam: General: awake, alert, no apparent distress Head: Normocephalic, atraumatic ENT: no icterus, PERRL, EOMI, no pharyngeal exudate Neuro: AAO x 3, speech clear and appropriate, strength intact bilaterally 5/5, sensation intact and equal all extremities and dermatomes, no pronator drift Chest: equal rise and fall of the chest, no accessory muscle use, on 1LNC, no subcutaneous emphysema noted on palpation Cardiac: Regular rate and rhythm, telemetry reviewed, skin warm dry, cap refill <3 seconds, peripheral pulses +2 no JVD, no murmur, no edema GI: NABS x 4 quadrants, soft, nontender to palpation, no rebound, guarding or tenderness : Spontaneously voiding, no pain, no CVA tenderness, Extremities: Normal inspection, no peripheral edema or erythema, calfs nontender to palpation Psych: Normal mood and affect Skin: no rash or erythema Results & Data Results & Data ([facility]) Vital Signs (Past 12 Hours) Vital Signs Temp Pulse Pulse Pulse Resp BP BP 04/23/21 19:53 122 H 101/56 L 04/23/21 19:50 36.8 C 122 H 20 101/56 L 04/23/21 15:10 36.7 C 74 18 111/69 04/23/21 11:23 36.9 C 84 18 98/51 L Pulse Ox 04/23/21 19:53 04/23/21 19:50 93 04/23/21 15:10 92 04/23/21 11:23 95 PG Care Time/CCT Total # of Minutes Spent Total Time Spent with Patient: Total time spent is greater than 50% in coordination of care (as documented) at patient's floor/unit and/or counseling patient: Coding Level of Care Code 05537 Subseq Hosp Care Lvl 3 Diagnoses Pneumonia due to 2019 novel coronavirus U07.1; J12.82 Pneumomediastinum J98.2 Hypoxia R09.02 Dilated aortic root I77.810 Asthma J45.909 Hyperlipidemia E78.5 Elevated LFTs R79.89 Time Spent (min) 35
[2021-04-23] MEDS: METOPROLOL TARTRATE 50 MG TAB PO SCH (21:53)
[2021-04-24] MEDS: guaiFENesin SUGAR FREE 100 MG/5 ML UDC PO SCH ×5 (01:13→23:27)
[2021-04-24] MEDS: METOPROLOL TARTRATE 50 MG TAB PO SCH (06:04)
--- NOTE | 2021-04-24 07:28 | Electrocardiogram Report ---
Test Reason : Blood Pressure : / mmHG Vent. Rate : 132 BPM Atrial Rate : 120 BPM P-R Int : 000 ms QRS Dur : 094 ms QT Int : 322 ms P-R-T Axes : 000 025 -61 degrees QTc Int : 477 ms Atrial fibrillation with rapid ventricular response Abnormal ECG When compared with ECG of 22-APR-2021 02:06, No significant change Confirmed by Walter Lopez ([id number]) on 04/24/2021 7:27:46 AM Referred By: REFERRED SELF Confirmed By:Walter Lopez
[2021-04-24 08:11] LABS: Basophils # (auto) 0.03 K/uL (0-0.2); Basophils % (auto) 0.3 %; Eosinophils # (auto) 0.18 K/uL (0-0.5); Hematocrit (blood only) 44.9 % (42-52); Hemoglobin 15.2 g/dL (14.0-18.0); Immature Granulocytes # (auto) 0.15 K/uL (0.00-0.02); Immature Granulocytes % (auto) 1.7 %; Lymphocytes # (auto) 1.55 K/uL (1.2-3.4); Lymphocytes % (auto) 17.6 %; Mean Corpuscular Hemoglobin 28.1 pg (25-34); Mean Corpuscular Hgb Conc 33.9 g/dL (32-36); Mean Platelet Volume 10.4 fL (7.4-10.4); Monocytes # (auto) 1.04 K/uL (0.11-0.59); Monocytes % (auto) 11.8 %; Neutrophils # (auto) 5.87 K/uL (1.4-6.5); Neutrophils % (auto) 66.6 %; Platelet Count 399 K/uL (130-400); RDW Coefficient of Variation 13.6 % (11.5-14.5); RDW Standard Deviation 40.8 fL (36.4-46.3); Red Blood Count 5.41 M/uL (4.7-6.1); White Blood Count 8.82 K/uL (4.8-10.8)
[2021-04-24 08:39] LABS: Albumin Level 1.9 gm/dl (3.4-5.0); BUN Creatinine Ratio 25.4 (10-20); Calcium 8.4 mg/dl (8.5-10.1); Creatinine Clr Calc Pharmacy 104.1 ml/min; Est GFR (African American) 116.9 ml/min; Est GFR (Non-African American) 100.8 ml/min; Magnesium 2.4 mg/dl (1.8-2.4); Partial Thromboplastin Time 52.7 Seconds (21.0-31.0); Potassium 3.6 mmol/L (3.5-5.1)
[2021-04-24 08:41] LABS: Albumin Globulin Ratio 0.4 (0.9-2); Bilirubin,Total 0.7 mg/dl (0.2-1); Globulin 4.9 gm/dl (2.5-4.0); Total Protein 6.8 gm/dl (6.4-8.2)
[2021-04-24] MEDS: FLUTICASONE/VILANTEROL 200/25MCG 14 PUFFS/INHALER INH SCH (09:35)
[2021-04-24] MEDS: APIXABAN 2.5 MG TAB PO SCH ×2 (11:29→20:56)
[2021-04-24] MEDS ORDERED: METOPROLOL TARTRATE 50 MG TAB PO SCH (12:00)
--- NOTE | 2021-04-24 13:49 | XCELERA ---
[id number]
--- NOTE | 2021-04-24 16:54 | Cardiology Progress Note ---
Date of Service April 24, 2021 Assessment & Plan (1) Atrial fibrillation with rapid ventricular response: Plan: Agree with aggressive upward titration of beta-ray in hopes of achieving ventricular rate of less than 120 bpm in the acute setting. Would further increase metoprolol to 150 mg twice daily, practically if patient decides to return home. Had considered cardioversion, but the patient had eaten breakfast and subsequently logistic challenge of cardioversion and Covid positive patient prevailed. He is subjectively improved, however should his rate remain elevated or he clinically declined, would proceed with cardioversion at that time. 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 (2) Pneumonia due to 2019 novel coronavirus: Plan: Per primary team. (3) Aortic root dilatation: Plan: Stable dimensions. Admission and Anticipated Discharge Date Admission Date: April 21, 2021 Subjective Patient states that he feels somewhat better. Very anxious to return home to his forearm. Denies chest pain, subjective palpitations, or dyspnea at rest. Telemetry showed atrial fibrillation with rapid ventricular rate, generally in the 110-150 bpm range. Physical Exam Physical Exam: Fit appearing adult male in no acute distress. Afebrile. Normotensive. Pulse 120 bpm or greater and irregular. Skin: no ecchymoses or generalized lesions. HEENT: unremarkable. Neck: no JVD or carotid bruits. Lungs: Diffuse rhonchi with expiratory wheezing. No accessory muscle use. Cardiac: Irregular/tachycardic rhythm without obvious murmur or gallop. Abdomen: benign. Extremities: no edema, pulses intact. Neurologic: normal affect, nonfocal. Results & Data ([facility]) Vital Signs (Past 12 Hours) Vital Signs Temp Pulse Pulse Resp BP BP Pulse Ox 04/24/21 12:28 73 118/67 93 04/24/21 12:03 97.5 F L 66 16 97/64 L 94 04/24/21 08:23 98.1 F 86 16 111/76 92 04/24/21 05:01 104 H Laboratory Results Normal electrolytes, BUN 19, creatinine 0.73. Diagnostic Findings Echocardiogram showed EF 50 to 55% with borderline global hypokinesis of the left ventricle, mild LVH, mild to moderate aortic regurgitation with moderate aortic root dilatation (4.7 cm, stable). Compared with 2019 study, mild decline in left ventricular systolic function, however current echo was done while patient is in atrial fibrillation with rapid ventricular response. PG Care Time/CCT Total # of Minutes Spent Total Time Spent with Patient: Total time spent is greater than 50% in coordination of care (as documented) at patient's floor/unit and/or counseling patient: Coding Level of Care Code 45975 Subseq Hosp Care Lvl 3 Diagnoses Atrial fibrillation with rapid ventricular response I48.91 Pneumonia due to 2019 novel coronavirus U07.1; J12.82 Aortic root dilatation I77.810
--- NOTE | 2021-04-24 17:21 | XRay Report ---
XR chest 1V portable HISTORY: 60 years-old Male SOB acute shortness of breath COMPARISON: CTA chest and chest radiograph 04/21/2021 TECHNIQUE: Portable AP view of the chest FINDINGS: Cardiomediastinal and hilar silhouettes are unchanged. No pneumothorax or large pleural effusion. [place] ateral peripheral predominant airspace opacities with associated interstitial coarsening redemonstrat ed and appears stable to slightly improved. No acute fracture. IMPRESSION: Persistent peripheral predominant pulmonary opacities suggestive of viral pneumonia, stab le to slightly improved. ACT 112: Negative or not required by law. The above report was generated using voice recognition software. It may contain grammatical, syntax o r spelling errors. Electronically signed by: Chris Ferguson M.D. 04/24/2021 5:20 PM
[2021-04-24] MEDS: METOPROLOL TARTRATE 25 MG TAB PO SCH ×2 (18:08→23:27)
[2021-04-24] MEDS: HEPARIN SODIUM/DEXTROSE 25,000 UNITS/500 ML BAG IV SCH (18:49)
--- NOTE | 2021-04-24 21:02 | Hospitalist Progress Note ---
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 on 1 liters nasal cannula. Patient is now in A. Fib. required multiple beta ray doses. will INCREASE on 75 mg of metoprolol QID and monitor. (2) Pneumomediastinum: Plan: Likely secondary to coughing, no pneumothorax seen on CXR or CT scan of the chest - likely to resolve on own - continue basic oxygen support - cough suppressant scheduled for 24 hours and then PRN q6 hrs - re-image if worsening in status (3) Hypoxia: Plan: As above secondary to COVID 19 and underlying asthma - Continue Decadron, MICHELLE, BREO - NC/HFNC (4) Dilated aortic root: Plan: Stable- last imaged in 2019 4.6cm (5) Asthma: Plan: As above (6) Hyperlipidemia: Plan: Declined therapy in the past (7) Elevated LFTs: Plan: Acute phase reactant secondary to COVID likely cause - follow daily - no abdominal discomfort - no abnormality seen on CTA of the chest with liver and gallbladder Admission and Anticipated Discharge Date Admission Date: April 21, 2021 Subjective Patient reports no new symptoms. Review of Systems Review of Systems: All systems reviewed & are unremarkable except as noted in HPI & below Physical Exam Physical Exam: General: awake, alert, no apparent distress Head: Normocephalic, atraumatic ENT: no icterus, PERRL, EOMI, no pharyngeal exudate Neuro: AAO x 3, speech clear and appropriate, strength intact bilaterally 5/5, sensation intact and equal all extremities and dermatomes, no pronator drift Chest: equal rise and fall of the chest, no accessory muscle use, on 1LNC, no subcutaneous emphysema noted on palpation Cardiac: Regular rate and rhythm, telemetry reviewed, skin warm dry, cap refill <3 seconds, peripheral pulses +2 no JVD, no murmur, no edema GI: NABS x 4 quadrants, soft, nontender to palpation, no rebound, guarding or tenderness : Spontaneously voiding, no pain, no CVA tenderness, Extremities: Normal inspection, no peripheral edema or erythema, calfs nontender to palpation Psych: Normal mood and affect Skin: no rash or erythema Results & Data Results & Data ([facility]) Vital Signs (Past 12 Hours) Vital Signs Temp Pulse Pulse Resp BP BP Pulse Ox 04/24/21 19:14 36.7 C 67 18 96/65 L 96 04/24/21 16:49 36.7 C 97 H 18 113/70 92 04/24/21 15:00 107 H 04/24/21 12:28 73 118/67 93 04/24/21 12:03 36.4 C L 66 16 97/64 L 94 PG Care Time/CCT Total # of Minutes Spent Total Time Spent with Patient: Total time spent is greater than 50% in coordination of care (as documented) at patient's floor/unit and/or counseling patient: Coding Level of Care Code 29690 Subseq Hosp Care Lvl 2 Diagnoses Pneumonia due to 2019 novel coronavirus U07.1; J12.82 Pneumomediastinum J98.2 Hypoxia R09.02 Dilated aortic root I77.810 Asthma J45.909 Hyperlipidemia E78.5 Elevated LFTs R79.89
[2021-04-25] MEDS ORDERED: METOPROLOL TARTRATE 50 MG TAB PO SCH (06:00)
[2021-04-25] MEDS: guaiFENesin SUGAR FREE 100 MG/5 ML UDC PO SCH ×2 (06:20→10:53)
[2021-04-25 07:11] LABS: Partial Thromboplastin Ratio 1.1; Partial Thromboplastin Time 27.8 Seconds (21.0-31.0)
[2021-04-25] MEDS: APIXABAN 2.5 MG TAB PO SCH (08:56)
[2021-04-25] MEDS: FLUTICASONE/VILANTEROL 200/25MCG 14 PUFFS/INHALER INH SCH (08:57)
[2021-04-25] MEDS ORDERED: DIGOXIN 0.125 MG TAB PO ONE (10:00)
--- NOTE | 2021-04-25 10:00 | Cardiology Progress Note ---
Date of Service April 25, 2021 Assessment & Plan (1) Atrial fibrillation with rapid ventricular response: Plan: His heart rate remains elevated, over the last 24 hours there is been very little change in heart rate overall. Although for a relatively short period of time this may be acceptable it is worrisome given his mild left ventricular dysfunction. He is on 150 mg twice a day metoprolol tartrate and further increases would not likely be beneficial, in fact his last increase did not change his heart rate. At this point I would add either digoxin or a calcium channel ray. We could use either but since his blood pressure is not high, sometimes on the low side, adding digoxin may be a better option. Additionally I would decrease his beta-ray since the current dose did not help with his heart rate. I will make these changes. (2) Pneumonia due to 2019 novel coronavirus: Plan: Treatment per primary team. Admission and Anticipated Discharge Date Admission Date: April 21, 2021 Subjective I did not interview the patient as he is in the Covid unit. I did review the chart and his data in detail. Physical Exam Physical Exam: Physical exam not performed due to his being in the Covid unit. Results & Data ([facility]) Vital Signs (Past 12 Hours) Vital Signs Temp Pulse Pulse Pulse Pulse Pulse Pulse 04/25/21 08:59 68 68 88 65 04/25/21 03:33 36.7 C 91 H 04/25/21 02:47 143 H 04/24/21 23:25 36.5 C 71 Resp Resp Resp Resp Resp BP Pulse Ox 04/25/21 08:59 18 18 18 16 04/25/21 03:33 18 115/63 94 04/25/21 02:47 04/24/21 23:25 18 110/80 93 Pulse Ox Pulse Ox Pulse Ox Pulse Ox 04/25/21 08:59 92 87 L 91 91 04/25/21 03:33 04/25/21 02:47 04/24/21 23:25 Laboratory Results Coagulation 04/25/21 Range/Units 06:32 APTT 27.8 (21.0-31.0) Seconds Intake and Output 04/24/21 04/25/21 04/25/21 22:59 06:59 14:59 Other: Other Intake Source SIPS Weight 75.7 kg Weight Measurement Method Built in [facility] Diagnostic Findings Telemetry: His heart rate remains elevated averaging around 120, there is some diurnal heart rate variation but not a lot. Several wide-complex rhythms which might be aberrancy rather than ventricular tachycardia. PG Care Time/CCT Total # of Minutes Spent Total Time Spent with Patient: Total time spent is greater than 50% in coordination of care (as documented) at patient's floor/unit and/or counseling patient: Coding Level of Care Code 47129 Subseq Hosp Care Lvl 2 Diagnoses Atrial fibrillation with rapid ventricular response I48.91 Pneumonia due to 2019 novel coronavirus U07.1; J12.82
[2021-04-25] MEDS ORDERED: dexAMETHasone 6 MG in SYRINGE 0 ML IV ONE (13:00)
[2021-04-25] MEDS ORDERED: DIGOXIN 0.25 MG TAB PO SCH (16:00)
[2021-04-25] MEDS ORDERED: METOPROLOL TARTRATE 100 MG TAB PO SCH (21:00)
--- NOTE | 2021-04-28 20:15 | Discharge Summary ---
Date of Service April 25, 2021 Admission HPI Per Admitting Provider 60 YOM with past medical history of: asthma on Albuterol and Breo at home, dilated ascending aorta 4.6cm in 2019, HLD (declined medial therapy). Patient comes to the emergency room today for continued weakness, fatigue, decreased oral intake for the past week. He is unvaccinated and today is his only COVID test that he has received per the patient. Patient is COVID positive. He is accompanied by his who has also recently been sick and is on the end of feeling better. The patient endorses that he is approximately 2 weeks of sinus congestion, fevers, body aches, diarrhea (now resolving), fatigue, and coughing that is dry and non productive but is associated with some dry heaves and gagging when it gets severe. The cogh has been getting progressively worse over the past 3-4 days. Normally he would take his albuterol and his BREO and he would feel better. In the EMD the patient had routine labs drawn, CXR, and CTA of the chest performed. Labs reveal mild elevation of his renal function, elev ated LFTs and bilirubin. His CTA of his chest was negative for PE and measured his ascending aortic dilation at 4.8cm, and a small pneumomediastinum without pneumothorax. His room air spo2 on arrival was 85% he was placed on 3LNC, Decadron 6mg, and nebulizer his Spo2 95%. Patient will be admitted for continued supportive care, cough suppressant, and monitoring of his pneumomediastinum. Continue Decadron for his COVID and asthma supportive care. Patient is not vaccinated and his COVID test on admission is: POSITIVE Principal Diagnosis COVID 19 Pneumonia Discharge Exam General: awake, alert, no apparent distress Head: Normocephalic, atraumatic ENT: no icterus, PERRL, EOMI, no pharyngeal exudate Neuro: AAO x 3, speech clear and appropriate, strength intact bilaterally 5/5, sensation intact and equal all extremities and dermatomes, no pronator drift Chest: equal rise and fall of the chest, no accessory muscle use, on 1LNC, no subcutaneous emphysema noted on palpation Cardiac: Regular rate and rhythm, telemetry reviewed, skin warm dry, cap refill <3 seconds, peripheral pulses +2 no JVD, no murmur, no edema GI: NABS x 4 quadrants, soft, nontender to palpation, no rebound, guarding or tenderness : Spontaneously voiding, no pain, no CVA tenderness, Extremities: Normal inspection, no peripheral edema or erythema, calfs nontender to palpation Psych: Normal mood and affect Skin: no rash or erythema Discharge Data Allergies Allergy/AdvReac Type Severity Reaction Status Date / Time No Known Allergies Allergy Verified 04/21/21 15:18 Consultations 04/21/21 14:36 ED Decision to Admit Stat 04/23/21 14:43 Consult Cardiology Routine Ordered Studies 04/21/21 12:11 CT angio chest PE protocol Stat Hospital Course (1) Pneumonia due to 2019 novel coronavirus: Not vaccinated - approximate day of illness ~14 days - hypoxic on arrival - Continue Decadron 6mg daily IV - Continue MICHELLE, Continue BREO - Not candidate for remdesivir secondary to time out from illness - LDH, CRP, ESR, Ferritin, BNP pending - PCT negative - LR 90ml an hour for one liter- 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 on 1 liters nasal cannula. Patient is now in A. Fib. required multiple beta ray doses. will INCREASE on 75 mg of metoprolol QID and monitor. On day of discharge: Patient spontaneously cardioverted to NSR. HR is 77. Patient will be discharged on 150 mg of metoprolol succinate BID Will followup with PCP and cardio will resume dexamethasone at discharge to complete 10 days. (2) Pneumomediastinum: Likely secondary to coughing, no pneumothorax seen on CXR or CT scan of the chest - likely to resolve on own - continue basic oxygen support - cough suppressant scheduled for 24 hours and then PRN q6 hrs - re-image if worsening in status (3) Hypoxia: As above secondary to COVID 19 and underlying asthma - Continue Decadron, MICHELLE, BREO - NC/HFNC (4) Dilated aortic root: Stable- last imaged in 2019 4.6cm (5) Asthma: As above (6) Hyperlipidemia: Declined therapy in the past (7) Elevated LFTs: Acute phase reactant secondary to COVID likely cause - follow daily - no abdominal discomfort - no abnormality seen on CTA of the chest with liver and gallbladder Total Time Total Time Spent Total Time Spent (In Minutes): 32 Discharge Plan Discharge Items Patient Disposition: Home - Self-Care Reason For Visit: FATIGUE, COUGH, DYSPNEA Discharge Diagnosis: COVID 19 pneumonia Activity: Resume your previous activity Non-emergency contact: Primary Care Provider Call non-emergency contact if: you have any medication questions Follow-up/Referrals: Elena Venegas CRNP [Primary Care Provider] - 05/12/21 2:00 pm Diet: Regular Addtl Attending Provider Instructions: You have been hospitalized for an acute medical problem. During your stay at [facility], we have made an effort to correct the problem that brought you to the hospital while keeping you as comfortable as possible. Medications were used to bring your condition under control and your discharge instructions will include directions for any medications you should take after leaving the hospital. Please make sure you see your Primary Care Provider as part of your follow up plan. You were diagnosed with COVID 19. You will continue on steroids for 9 more days. Start dexamethasone tomorrow. Please continue your other twice a day medications tonight Followup with Cardio in 1-2 week Followup with PCP in 1-2 weeks Pending Studies at Discharge: No Stand-Alone Forms: My [facility], Smoking Cessation Medications and DC Order Prescriptions: New dexamethasone 6 mg tablet 6 mg PO DAILY Qty: 8 RF: 0 Eliquis 5 mg tablet 5 mg PO BID Qty: 60 RF: 0 metoprolol succinate 50 mg tablet extended release 24 hr 150 mg PO BID 30 Days Qty: 180 RF: 0 Continued Breo Ellipta 200-25 mcg/dose blister with device 1 inh INHALATION QAM Qty: 180 RF: 3 Discharge Orders: Discharge Order (Routine); Ordered 04/25/21 Ordered By: Lion Dempsey Admission Data Admit Date/Time: 04/21/21 15:17 Attending Provider: Lion Dempsey Admit Provider: Andrews Enamorado Primary Care Provider: Elena Venegas Other Providers: Andrews Enamorado ; Walter Lopez Other Interventions: Discharge Summary Assessment (RN) Last Done: 04/25/21 13:54 Coding Level of Care Code D/C DAY MANAGEMENT >30 MINS Diagnoses Pneumonia due to 2019 novel coronavirus U07.1; J12.82 Pneumomediastinum J98.2 Hypoxia R09.02 Dilated aortic root I77.810 Asthma J45.909 Hyperlipidemia E78.5 Elevated LFTs R79.89
== END 2021-04-25 14:37 | disposition home or self-care (01) | DRG 177 ==
LOC: ED 11:44 → 2N 15:17 → SUATTDRO 15:17 → 2N 17:36